=== PATIENT | male | born 1995 | race Caucasian/White ===

== ENCOUNTER 2017-04-04 11:12 | Day surgery (SDC) | payer OTHER ==
[2017-04-04] MEDS ORDERED: Ketorolac Tromethamine 30 MG/ML VIAL IVP SCH (12:15)
[2017-04-04] MEDS ORDERED: Acetaminophen 1,000 MG in Premix Bag 1 BAG IVPB SCH (12:15)
--- NOTE | 2017-04-04 12:22 | HP ---
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 presents to [facility] with onset of right lower abdominal pain localized to right lower quadrant last night. He suffered nausea and vomiting this morning. Pain is worse with moveme nt. He has not had fever. In the [facility], his white blood cell count was elevated. Hematocrit 43. He underwent a CAT scan demonstrating changes consistent with appendicitis. ALLERGIES: None. TOBACCO: None. ALCOHOL: Rarely. MEDICATIONS: None routinely. PAST SURGICAL HISTORY: [place] teeth. PAST MEDICAL HISTORY: Noncontributory. REVIEW OF SYSTEMS: [place] noncontributory. PHYSICAL EXAMINATION: VITAL SIGNS: Respiratory rate 18, 143/90, heart rate 58, 97.1 degrees. HEENT: Unremarkable. LUNGS: Clear to auscultation. CARDIAC: Regular rate and rhythm without murmur or gallop. ABDOMEN: Soft, tenderness in right lower quadrant with guarding and rebound. EXTREMITIES: Unremarkable. ASSESSMENT AND PLAN: Acute appendicitis by history, confirmed with CT scan at [facility]. We will plan laparoscopic video appendectomy. Risk of infection, bleeding, visceral injury, ope n procedure discussed, questions answered. White count 17, hemoglobin 15. Basic metabolic profile n ormal. Liver function tests normal.
[2017-04-04] MEDS ORDERED: Bupivacaine PF 0.5% 30 ML VIAL ONE (12:57)
[2017-04-04] MEDS ORDERED: Lidocaine 1% w/Epinephrine 1:200K 30 ML VIAL ONE (12:57)
[2017-04-04] MEDS ORDERED: Fentanyl 100 MCG/2 ML VIAL ONE (13:01)
[2017-04-04] MEDS ORDERED: Ampicillin/Sulbactam 3 GM in Sodium Chloride 0.9% 100 ML IVPB SCH (14:00)
[2017-04-04] MEDS ORDERED: Propofol 200 MG/20 ML VIAL ONE (14:21)
[2017-04-04] MEDS ORDERED: Lidocaine 1% PF 5 ML VIAL ONE (14:21)
[2017-04-04] MEDS ORDERED: Ondansetron HCl/PF 4 MG/2 ML Vial ONE (14:21)
[2017-04-04] MEDS ORDERED: Glycopyrrolate 0.2 MG/ML 5 ML SYRINGE ONE (14:21)
[2017-04-04] MEDS ORDERED: Dexamethasone 20 MG/5 ML VIAL ONE (14:21)
[2017-04-04] MEDS ORDERED: Succinylcholine Chloride 20 MG/ML 10 ml SYRINGE FS ONE (14:21)
--- NOTE | 2017-04-04 15:11 | OP ---
DATE OF PROCEDURE: 04/04/2017 PREOPERATIVE DIAGNOSIS: Acute appendicitis. POSTOPERATIVE DIAGNOSIS: Acute appendicitis. PROCEDURE PERFORMED: Laparoscopic video appendectomy. SURGEON: Dr. Ranjith Parson ANESTHESIA: General. Local 0.25% Marcaine without epinephrine 30 mL, mixed with 1% Xylocaine with e pinephrine, 30 mL. PROCEDURE IN DETAIL: Patient taken to the operating room where under general anesthesia, abdomen was clipped of hair, prepared with ChloraPrep, draped in routine fashion. Zhao catheter placed at the beginning of the procedure and removed at the end. Local anesthetic mixture infiltrated into skin an d subcutaneous tissue about all port sites. Infraumbilical incision made and pneumoperitoneum to 15 mmHg obtained with the Veress needle, replacing it with a 5-port laparoscope inserted. Right lateral subcostal incision made and a 5-port placed. Suprapubic incision made and a 12-port placed. Append ix was noted to be acutely inflamed. Mesoappendix was taken down with the LigaSure. The stump of th e appendix divided with Endo-GERALDINE blue load stapler. Stapled cecal stump was oozing and clips applied for hemostasis. Good hemostasis noted. Appendix placed in an Endobag and removed. Good hemostasis noted. Irrigant and pneumoperitoneum evacuated after suprapubic fascia approximated with 0 Vicryl s uture. All skin incisions approximated with interrupted subdermal 4-0 Monocryl and DermaGlue applied .
== END 2017-04-04 16:57 | disposition home or self-care (01) ==
LOC: ER/OP 11:12 → SDC 16:57
PROVIDERS: ATTEND Specialist
PROC: 0DTJ4ZZ Resection of Appendix, Percutaneous Endoscopic Approach (ICD-10-PCS; principal; 2017-04-04)
DX: K35.80 Unspecified acute appendicitis (principal); E66.9 Obesity, unspecified; Z68.33 Body mass index [BMI] 33.0-33.9, adult; Z98.818 Other dental procedure status
CPT/HCPCS: 88304; J0131; J0295; J1100; J2001; J2405; J2704; J3010; J7050; S0020